=== PATIENT | male | born 1935 | race Caucasian/White ===

== ENCOUNTER 2021-11-06 23:00 | Inpatient (IN) ==
[2021-11-07] MEDS ORDERED: Acetaminophen 325 MG TABLET PO PRN (03:42)
[2021-11-07] MEDS ORDERED: Naloxone 0.4 MG/ML INJ IVP PRN (03:42)
[2021-11-07] MEDS ORDERED: Ondansetron 4 MG/2 ML VIAL IVP PRN (03:42)
[2021-11-07] MEDS ORDERED: *HR* Heparin 5,000 UNIT/ML VIAL IVP PRN ×2 (04:01)
[2021-11-07] MEDS ORDERED: Heparin 25,000UNIT/250ML 1/2NS 25,000 UNIT/250 ML IV.SOLN IVC SCH (04:15)
[2021-11-07 04:25] LABS: Basophils % 0.5 %; Eosinophils % 0.2 %; Hematocrit 29.9 % (37.5-50.1); Hemoglobin 9.5 g/dL (12.9-16.9); Immature Granulocytes % 0.5 % (0-4); Lymphocytes # 0.8 K/mcL (0.6-4.6); Lymphocytes % 13.5 %; Mean Corpuscular HGB Conc 31.8 g/dL (31.6-35.5); Mean Corpuscular Hemoglobin 30.1 pg (28.0-33.3); Mean Corpuscular Volume 94.6 fL (83.0-100.0); Mean Platelet Volume 9.5 fL (9.4-12.4); Monocytes # 0.8 K/mcL (0.0-1.3); Monocytes % 13.1 %; Neutrophils # 4.2 K/mcL (1.6-8.9); Platelet Count 197 K/mcL (140-400); Red Blood Count 3.16 M/mcL (4.19-5.50); Red Cell Distribution Width 13.7 % (11.5-14.5); Segmented Neutrophils % 72.2 %; White Blood Count 5.8 K/mcL (4.3-11.1)
[2021-11-07 04:34] LABS: INR 1.2; Prothrombin Time 13.7 Seconds (9.4-12.1)
[2021-11-07 04:44] LABS: Albumin 4.1 g/dL (3.5-5.7); Albumin/Globulin Ratio 1.2 (1.1-2.2); Bilirubin,Total 0.3 mg/dL (0.3-1.0); Calcium 8.9 mg/dL (8.6-10.3); Globulin 3.4 g/dL (2.4-3.5); Magnesium 2.2 mg/dL (1.6-2.6); Phosphorous 4.7 mg/dL (2.7-4.5); Total Protein 7.5 g/dL (6.4-8.9)
[2021-11-07 04:53] LABS: Troponin I 2.38 ng/mL (< 0.04)
[2021-11-07] MEDS ORDERED: Benzonatate 100 MG CAPSULE PO PRN (06:33)
[2021-11-07] MEDS ORDERED: Perflutren Lipid Microsphere 1.3 ML in 0.9 % Sodium Chloride 8.7 ML IVP PRN (06:45)
[2021-11-07] MEDS ORDERED: 0.9 % Sodium Chloride 500 ML IVC ONE (06:49)
[2021-11-07] MEDS: Ipratropium 1 PUFF INHALER IH SCH ×4 (07:54→19:44)
[2021-11-07] MEDS: 0.9 % Sodium Chloride 1,000 ML IVC SCH (12:48)
[2021-11-07] MEDS: Aspirin 81 MG TAB.CHEW PO SCH (14:52)
[2021-11-07] MEDS: QUEtiapine Fumarate 25 MG TABLET PO SCH (20:49)
[2021-11-08] MEDS: Ipratropium 1 PUFF INHALER IH SCH ×7 (00:15→23:58)
[2021-11-08 03:04] LABS: Basophils % 0.3 %; Hematocrit 24.4 % (37.5-50.1); Immature Granulocytes % 0.5 % (0-4); Lymphocytes # 1.3 K/mcL (0.6-4.6); Lymphocytes % 20.7 %; Mean Corpuscular HGB Conc 32.8 g/dL (31.6-35.5); Mean Corpuscular Hemoglobin 30.8 pg (28.0-33.3); Mean Corpuscular Volume 93.8 fL (83.0-100.0); Mean Platelet Volume 9.8 fL (9.4-12.4); Monocytes # 0.7 K/mcL (0.0-1.3); Monocytes % 11.4 %; Neutrophils # 4.3 K/mcL (1.6-8.9); Platelet Count 189 K/mcL (140-400); Red Cell Distribution Width 13.6 % (11.5-14.5); Segmented Neutrophils % 67.1 %; White Blood Count 6.4 K/mcL (4.3-11.1)
[2021-11-08 03:13] LABS: Calcium 8.2 mg/dL (8.6-10.3); Potassium 4.1 mEq/L (3.5-5.1)
[2021-11-08] MEDS: Zinc Sulfate 220 MG CAPSULE PO SCH (09:41)
[2021-11-08] MEDS: allopurinoL 100 MG TABLET PO SCH (09:41)
[2021-11-08] MEDS: Ascorbic Acid 500 MG TABLET PO SCH (09:41)
[2021-11-08] MEDS: Aspirin 81 MG TAB.CHEW PO SCH (09:42)
[2021-11-08] MEDS: 0.9 % Sodium Chloride 1,000 ML IVC SCH (11:31)
[2021-11-08] MEDS: *HR* Heparin 5,000 UNIT/ML VIAL SQ SCH (17:58)
[2021-11-08] MEDS: QUEtiapine Fumarate 25 MG TABLET PO SCH (21:32)
[2021-11-09] MEDS: Ipratropium 1 PUFF INHALER IH SCH ×6 (03:56→23:44)
[2021-11-09] MEDS: *HR* Heparin 5,000 UNIT/ML VIAL SQ SCH ×2 (05:03→17:27)
[2021-11-09 07:02] LABS: Basophils % 0.4 %; Eosinophils % 0.4 %; Hematocrit 24.1 % (37.5-50.1); Hemoglobin 7.6 g/dL (12.9-16.9); Immature Granulocytes % 0.2 % (0-4); Lymphocytes # 1.3 K/mcL (0.6-4.6); Mean Corpuscular HGB Conc 31.5 g/dL (31.6-35.5); Mean Corpuscular Hemoglobin 30.3 pg (28.0-33.3); Mean Platelet Volume 9.5 fL (9.4-12.4); Monocytes # 0.5 K/mcL (0.0-1.3); Platelet Count 174 K/mcL (140-400); Red Blood Count 2.51 M/mcL (4.19-5.50); Red Cell Distribution Width 13.6 % (11.5-14.5); White Blood Count 4.9 K/mcL (4.3-11.1)
[2021-11-09 07:22] LABS: Calcium 8.1 mg/dL (8.6-10.3); Potassium 3.7 mEq/L (3.5-5.1)
[2021-11-09 07:24] LABS: % Iron Saturation 10 % (20-55); Iron 27 mcg/dL (65-175); Transferrin 196 mg/dL (203-362)
[2021-11-09 07:41] LABS: Ferritin 58 ng/mL (20-250)
[2021-11-09 08:05] LABS: Folate > 22.3 ng/mL (3.0-16.0); Vitamin B12 456 pg/mL (250-1100)
[2021-11-09] MEDS: Zinc Sulfate 220 MG CAPSULE PO SCH (10:13)
[2021-11-09] MEDS: Ascorbic Acid 500 MG TABLET PO SCH (10:13)
[2021-11-09] MEDS: allopurinoL 100 MG TABLET PO SCH (10:14)
[2021-11-09] MEDS: 0.9 % Sodium Chloride 1,000 ML IVC SCH ×2 (10:15→23:35)
[2021-11-09] MEDS: Aspirin 81 MG TAB.CHEW PO SCH (10:15)
[2021-11-09] MEDS: QUEtiapine Fumarate 25 MG TABLET PO SCH (21:56)
[2021-11-10] MEDS: Ipratropium 1 PUFF INHALER IH SCH ×6 (04:02→23:50)
[2021-11-10] MEDS: *HR* Heparin 5,000 UNIT/ML VIAL SQ SCH ×2 (05:06→16:53)
[2021-11-10] MEDS: Aspirin 81 MG TAB.CHEW PO SCH (09:12)
[2021-11-10] MEDS: allopurinoL 100 MG TABLET PO SCH (09:12)
[2021-11-10] MEDS: Ascorbic Acid 500 MG TABLET PO SCH (09:12)
[2021-11-10] MEDS: Zinc Sulfate 220 MG CAPSULE PO SCH (09:12)
[2021-11-10] MEDS: QUEtiapine Fumarate 25 MG TABLET PO SCH (21:35)
[2021-11-11] MEDS: 0.9 % Sodium Chloride 1,000 ML IVC SCH ×2 (01:30→10:18)
[2021-11-11 02:53] LABS: Basophils % 0.3 %; Eosinophils # 0.1 K/mcL (0.0-0.6); Eosinophils % 1.6 %; Hematocrit 20.7 % (37.5-50.1); Hemoglobin 6.8 g/dL (12.9-16.9); Immature Granulocytes % 0.5 % (0-4); Lymphocytes # 0.8 K/mcL (0.6-4.6); Lymphocytes % 21.4 %; Mean Corpuscular HGB Conc 32.9 g/dL (31.6-35.5); Mean Corpuscular Hemoglobin 31.2 pg (28.0-33.3); Mean Platelet Volume 9.5 fL (9.4-12.4); Monocytes # 0.3 K/mcL (0.0-1.3); Monocytes % 8.4 %; Neutrophils # 2.5 K/mcL (1.6-8.9); Platelet Count 154 K/mcL (140-400); Red Blood Count 2.18 M/mcL (4.19-5.50); Red Cell Distribution Width 13.5 % (11.5-14.5); Segmented Neutrophils % 67.8 %; White Blood Count 3.7 K/mcL (4.3-11.1)
[2021-11-11 03:03] LABS: BUN/Creatinine Ratio 23 (6-26); Blood Urea Nitrogen 31 mg/dL (8-23); Calcium 8.1 mg/dL (8.6-10.3); Carbon Dioxide 21 mEq/L (23-29); Chloride 107 mEq/L (98-107); Glucose 113 mg/dL (70-105); Osmolality,Calculated 287 (280-300); Potassium 4.3 mEq/L (3.5-5.1); Sodium 135 mEq/L (136-145); eGFR For African Americans > 60 (> 60); eGFR For Non-African Americans 50 (> 60)
[2021-11-11] MEDS: Ipratropium 1 PUFF INHALER IH SCH ×6 (03:53→23:21)
[2021-11-11] MEDS: *HR* Heparin 5,000 UNIT/ML VIAL SQ SCH ×2 (05:18→16:45)
[2021-11-11] MEDS: Aspirin 81 MG TAB.CHEW PO SCH (10:18)
[2021-11-11] MEDS: Ascorbic Acid 500 MG TABLET PO SCH (10:18)
[2021-11-11] MEDS: allopurinoL 100 MG TABLET PO SCH (10:18)
[2021-11-11] MEDS: Zinc Sulfate 220 MG CAPSULE PO SCH (10:18)
[2021-11-11] MEDS ORDERED: 0.9 % Sodium Chloride 500 ML ONE (12:19)
[2021-11-11 17:22] LABS: Hematocrit 25.1 % (37.5-50.1); Hemoglobin 8.3 g/dL (12.9-16.9)
[2021-11-11] MEDS: QUEtiapine Fumarate 25 MG TABLET PO SCH (21:26)
[2021-11-12] MEDS: Ipratropium 1 PUFF INHALER IH SCH ×5 (03:56→20:37)
[2021-11-12 05:43] LABS: Basophils % 0.3 %; Eosinophils % 0.8 %; Hematocrit 24.6 % (37.5-50.1); Immature Granulocytes % 0.5 % (0-4); Lymphocytes # 1.1 K/mcL (0.6-4.6); Lymphocytes % 28.6 %; Mean Corpuscular HGB Conc 32.5 g/dL (31.6-35.5); Mean Corpuscular Hemoglobin 30.5 pg (28.0-33.3); Mean Corpuscular Volume 93.9 fL (83.0-100.0); Mean Platelet Volume 9.7 fL (9.4-12.4); Monocytes # 0.3 K/mcL (0.0-1.3); Neutrophils # 2.3 K/mcL (1.6-8.9); Platelet Count 165 K/mcL (140-400); Red Blood Count 2.62 M/mcL (4.19-5.50); Red Cell Distribution Width 14.7 % (11.5-14.5); Segmented Neutrophils % 60.8 %; White Blood Count 3.8 K/mcL (4.3-11.1)
[2021-11-12] MEDS: *HR* Heparin 5,000 UNIT/ML VIAL SQ SCH ×2 (06:39→17:09)
[2021-11-12] MEDS: Zinc Sulfate 220 MG CAPSULE PO SCH (09:32)
[2021-11-12] MEDS: allopurinoL 100 MG TABLET PO SCH (09:32)
[2021-11-12] MEDS: Aspirin 81 MG TAB.CHEW PO SCH (09:32)
[2021-11-12] MEDS: Ascorbic Acid 500 MG TABLET PO SCH (09:32)
[2021-11-12] MEDS: QUEtiapine Fumarate 25 MG TABLET PO SCH (22:23)
[2021-11-12] MEDS: Melatonin 3 MG TABLET PO PRN (22:30)
[2021-11-13] MEDS: Ipratropium 1 PUFF INHALER IH SCH ×7 (00:16→23:54)
[2021-11-13] MEDS: *HR* Heparin 5,000 UNIT/ML VIAL SQ SCH ×2 (04:58→17:33)
[2021-11-13] MEDS: Aspirin 81 MG TAB.CHEW PO SCH (09:21)
[2021-11-13] MEDS: Zinc Sulfate 220 MG CAPSULE PO SCH (09:21)
[2021-11-13] MEDS: Ascorbic Acid 500 MG TABLET PO SCH (09:21)
[2021-11-13] MEDS: allopurinoL 100 MG TABLET PO SCH (09:22)
[2021-11-13] MEDS: QUEtiapine Fumarate 25 MG TABLET PO SCH (20:59)
[2021-11-14] MEDS: Ipratropium 1 PUFF INHALER IH SCH ×6 (04:06→23:43)
[2021-11-14] MEDS: *HR* Heparin 5,000 UNIT/ML VIAL SQ SCH ×2 (04:47→18:18)
[2021-11-14] MEDS: Zinc Sulfate 220 MG CAPSULE PO SCH (09:12)
[2021-11-14] MEDS: Aspirin 81 MG TAB.CHEW PO SCH (09:12)
[2021-11-14] MEDS: allopurinoL 100 MG TABLET PO SCH (09:12)
[2021-11-14] MEDS: Ascorbic Acid 500 MG TABLET PO SCH (09:12)
[2021-11-14] MEDS: QUEtiapine Fumarate 25 MG TABLET PO SCH (20:09)
[2021-11-14] MEDS: Melatonin 3 MG TABLET PO PRN (20:09)
[2021-11-15 03:32] LABS: Hematocrit 24.8 % (37.5-50.1); Hemoglobin 7.9 g/dL (12.9-16.9); Mean Corpuscular HGB Conc 31.9 g/dL (31.6-35.5); Mean Corpuscular Volume 94.3 fL (83.0-100.0); Mean Platelet Volume 9.8 fL (9.4-12.4); Platelet Count 245 K/mcL (140-400); Red Blood Count 2.63 M/mcL (4.19-5.50); Red Cell Distribution Width 14.3 % (11.5-14.5); White Blood Count 5.3 K/mcL (4.3-11.1)
[2021-11-15 03:46] LABS: Calcium 8.2 mg/dL (8.6-10.3); Magnesium 2.2 mg/dL (1.6-2.6); Potassium 3.6 mEq/L (3.5-5.1)
[2021-11-15] MEDS: Ipratropium 1 PUFF INHALER IH SCH ×5 (03:51→19:59)
[2021-11-15 06:11] LABS: Adenovirus F 40/41 PCR Not detected (Not detect); Astrovirus PCR Not detected (Not detect); C.difficile Toxin A/B Gene PCR Not detected (Not detect); Campylobacter by PCR Not detected (Not detect); Cryptosporidium by PCR Not detected (Not detect); Cyclospora cayetanensis PCR Not detected (Not detect); E. coli O157 by PCR Not detected (Not detect); Entamoeba histolytica PCR Not detected (Not detect); Enteroaggregative E.coli(EAEC) Not detected (Not detect); Enteropathogenic E.coli(EPEC) Not detected (Not detect); Enterotoxigenic E.coli (ETEC) Not detected (Not detect); Giardia lamblia PCR Not detected (Not detect); Norovirus GI/GII PCR Not detected (Not detect); Plesiomonas shigelloides PCR Not detected (Not detect); Rotavirus A PCR Not detected (Not detect); Salmonella PCR Not detected (Not detect); Sapovirus PCR Not detected (Not detect); Shig/EnteroinvasiveE coli EIEC Not detected (Not detect); Shigalike tox-prod E coli STEC Not detected (Not detect); Vibrio PCR Not detected (Not detect); Vibrio cholerae PCR Not detected (Not detect); Yersinia enterocolitica PCR Not detected (Not detect)
[2021-11-15] MEDS ORDERED: 0.9 % Sodium Chloride 500 ML IVC ONE (07:50)
[2021-11-15] MEDS ORDERED: 0.9 % Sodium Chloride 1,000 ML IVC SCH (08:00)
[2021-11-15] MEDS: Aspirin 81 MG TAB.CHEW PO SCH (09:18)
[2021-11-15] MEDS: Ascorbic Acid 500 MG TABLET PO SCH (09:18)
[2021-11-15] MEDS: allopurinoL 100 MG TABLET PO SCH (09:18)
[2021-11-15] MEDS: Zinc Sulfate 220 MG CAPSULE PO SCH (09:19)
[2021-11-15] MEDS: Pantoprazole 40 MG VIAL IVP SCH (16:57)
[2021-11-15] MEDS: QUEtiapine Fumarate 25 MG TABLET PO SCH (19:35)
[2021-11-16] MEDS: Ipratropium 1 PUFF INHALER IH SCH ×4 (00:07→11:29)
[2021-11-16] MEDS: Pantoprazole 40 MG VIAL IVP SCH (05:38)
[2021-11-16 05:52] LABS: Hematocrit 25.1 % (37.5-50.1); Hemoglobin 7.7 g/dL (12.9-16.9); Mean Corpuscular HGB Conc 30.7 g/dL (31.6-35.5); Mean Corpuscular Hemoglobin 29.4 pg (28.0-33.3); Mean Corpuscular Volume 95.8 fL (83.0-100.0); Mean Platelet Volume 9.5 fL (9.4-12.4); Platelet Count 271 K/mcL (140-400); Red Blood Count 2.62 M/mcL (4.19-5.50); Red Cell Distribution Width 14.3 % (11.5-14.5); White Blood Count 5.9 K/mcL (4.3-11.1)
[2021-11-16 06:09] LABS: BUN/Creatinine Ratio 29 (6-26); Blood Urea Nitrogen 38 mg/dL (8-23); Calcium 8.1 mg/dL (8.6-10.3); Carbon Dioxide 19 mEq/L (23-29); Chloride 110 mEq/L (98-107); Glucose 80 mg/dL (70-105); Osmolality,Calculated 292 (280-300); Potassium 3.5 mEq/L (3.5-5.1); Sodium 137 mEq/L (136-145); eGFR For African Americans > 60 (> 60); eGFR For Non-African Americans 52 (> 60)
[2021-11-16] MEDS: Ascorbic Acid 500 MG TABLET PO SCH (09:06)
[2021-11-16] MEDS: allopurinoL 100 MG TABLET PO SCH (09:07)
[2021-11-16] MEDS: Zinc Sulfate 220 MG CAPSULE PO SCH (09:07)
[2021-11-16 16:25] VITALS: BP 105/65; PULSE 79; TEMP 97.9; O2SAT 95
== END 2021-11-16 17:09 | DRG 177 ==
LOC: 2ANU → SUATTDRO 11-07 02:54
PROVIDERS: ADMIT Internal Medicine; ATTEND Family Medicine